=== PATIENT | female | born 1965 | race Caucasian/White ===

== ENCOUNTER 2018-04-13 05:06 | Day surgery (SDC) | payer BC ==
[2018-04-08 13:19] VITALS: BMI 24.0
[2018-04-13] MEDS ORDERED: ISOSULFAN BLUE 10 MG/ML VIAL SQ ONE (11:27)
[2018-04-13] MEDS ORDERED: LIDOCAINE HCL/PF 1% SDV 5ML VIAL ONE ×2 (11:27→11:29)
[2018-04-13] MEDS ORDERED: PROPOFOL 20 ML ONE (12:17)
[2018-04-13] MEDS ORDERED: MIDAZOLAM HCL 2 MG/2 ML SINGLE DOSE VIAL ONE (12:17)
[2018-04-13] MEDS ORDERED: ceFAZolin SODIUM 1 GM VIAL ONE (12:29)
[2018-04-13] MEDS ORDERED: ceFAZolin SODIUM 1 GM VIAL IVPB ONE (12:35)
[2018-04-13] MEDS ORDERED: DEXAMETHASONE SOD PHOSPHATE 4 MG/1 ML VIAL ONE (12:53)
[2018-04-13] MEDS ORDERED: ONDANSETRON 4 MG/2 ML VIAL IVPUSH PRN (13:53)
[2018-04-13] MEDS ORDERED: oxyCODONE HCL 5 MG TABLET PO PRN (13:53)
[2018-04-13] MEDS ORDERED: ACETAMINOPHEN 1000 MG/100 ML VIAL (NON FORMULARY) IVPB ONE (13:54)
[2018-04-13] MEDS ORDERED: KETOROLAC TROMETHAMINE 30 MG/1 ML VIAL IM ONE (13:54)
[2018-04-13] MEDS ORDERED: LACTATED RINGERS SOLUTION 1,000 ML IV SCH (14:00)
--- NOTE | 2018-04-13 15:19 | OP ---
DATE OF OPERATION: 04/13/2018 PREOPERATIVE DIAGNOSIS: Left breast cancer. POSTOPERATIVE DIAGNOSIS: Left breast cancer. PROCEDURE: Left breast ultrasound-guided wire localized lumpectomy and sentinel lymph node biopsy. SURGEON: Christy Valiente MD ANESTHESIA: General. ESTIMATED BLOOD LOSS: Minimal. COMPLICATIONS: None. This was a sterile procedure. INDICATION FOR PROCEDURE: Patient presented with a palpable mass in the retroareolar left 7 o'clock location involving the skin and puckering of the skin that prompted a mammogram and a sonogram. This noted a spiculated density in the inner left breast in addition to the thickening at the nipple-areolar complex. She had a preoperative MRI that noted the 2 areas were relatively close to each other; so, I felt this could be encompassed with 1 lumpectomy. Therefore, we discussed the options of mastectomy and lumpectomy. After the decision was to go ahead with a lumpectomy and a sentinel node biopsy, the procedure was discussed with her, all the questions answered. She understands that part of the nipple would be removed and then, depending on the margins, we will have to decide whether the entire nipple would be removed with the central lumpectomy or not. PROCEDURE IN DETAIL: Patient was brought to [facility], taken to Nuclear Medicine where technetium-labeled sulfur colloid was injected by the radiologist into the left breast as an intradermal injection. She was brought to the operating room, and after induction of general anesthesia, an intraoperative ultrasound performed over the left breast 9 o'clock location, 5 cm from the nipple, and the lesion in question identified, using Betadine to cleanse the skin, a Kopans wire used to localize this under ultrasound guidance by me. Images were recorded. IV antibiotics were given, and the left breast and axilla were prepped and draped in usual sterile fashion. Next, 5 mL of isosulfan blue dye were injected by me into the left subareolar plexus, and breast was massaged for 5 minutes. The left breast and axilla then re-prepped and re-draped, and a 4-cm incision was made in the left axilla, carried down through the clavipectoral fascia to identify 2 sentinel lymph nodes that were both blue and hot. These were sent as sentinel node number 1 blue and hot and sentinel lymph node number 2 blue and hot. There was no other blue dye or radioactivity within the left axilla. However, on palpation, I felt a firm lymph node that was slightly enlarged at approximately 1.2 cm. I took this separately. There was no blue dye or radioactivity within this, and this was sent as a left axillary non-sentinel node. There was no other pathologic-feeling lymph node. Therefore, once hemostasis was assured, the left breast lumpectomy was performed. An ellipse of skin was taken to include the palpable mass in the retroareolar location, as well as the skin overlying the tumor in the 9 o'clock location. Superior, inferior, medial, and lateral flaps were raised, and an en bloc lumpectomy was performed. This was tagged with a long stitch lateral, short stitch superior. The tissue of the nipple felt close, and the tissue on the remainder of the nipple felt soft without involvement grossly. An intraoperative ultrasound was performed of the lumpectomy, and that seemed to be encompassing around the mass in the 9 o'clock location. This was then sent to Pathology for permanent section. Hemostasis was assured with electrocautery. The parenchyma were approximated with interrupted 2-0 Vicryl, skin approximated with interrupted 2-0 Vicryl running and 4-0 Monocryl. The axillary incision was also closed in a routine fashion with interrupted 2-0 Vicryl running and 4-0 Prolene. A sterile dressing with Tegaderm and 4 x 4's applied. She tolerated the procedure well. She was extubated on the operating room table, taken to Recovery in good condition. Johnson [id number]
[2018-04-13 15:26] VITALS: TEMP 97.6
[2018-04-13 16:32] VITALS: BP 118/72; PULSE 80
--- NOTE | 2018-04-20 17:08 | PATH ---
Surgical Pathology Report Patient Name: DAWNA STEPHENSON [facility]. Rec. #: [id number] /Age/Gender: 1965 (Age: 52) / F Account: [id number] Location: [facility] SURGICAL Taken: 04/13/2018 Received: 04/14/2018 Reported: 04/22/2018 Physicians: Christy Valiente M.D. Specimen(s) Received A: LEFT AXILLARY SENTINEL LYMPH NODE #1 B: LEFT AXILLARY SENTINEL LYMPH NODE #2 C: LEFT AXILLARY NON SENTINEL LYMPH NODE D: LEFT BREAST MASS Clinical History Invasive Final Diagnosis AMENDED REPORT A. AXILLARY SENTINEL LYMPH NODE #1, LEFT, EXCISION: ONE BENIGN LYMPH NODE ON H&E AND CYTOKERATIN AE1/3 IMMUNOHISTOCHEMICAL STAIN (0/1). B. AXILLARY SENTINEL LYMPH NODE #2, LEFT, EXCISION: ONE BENIGN LYMPH NODE ON H&E AND CYTOKERATIN AE1/3 IMMUNOHISTOCHEMICAL STAIN (0/1). C. AXILLARY NON-SENTINEL LYMPH NODE, LEFT, EXCISION: ONE BENIGN LYMPH NODE (0/1). D. BREAST, LEFT, LUMPECTOMY: TWO FOCI OF INVASIVE LOBULAR CARCINOMA WITH PLEOMORPHIC FEATURES (TUBULE SCORE: 3/3, NUCLEAR GRADE: 2/3, MITOTIC SCORE: 3/3; TOTAL REBEKA SCORE: 8/9). FOCI OF CARCINOMA MEASURES 2.6 AND 1.4 CM IN GREATEST MICROSCOPIC DIMENSION. INVASIVE CARCINOMA INVOLVES DERMIS. FOCAL LOBULAR CARCINOMA IN SITU (LCIS) WITH PLEOMORPHIC FEATURES, ADMIXED WITH INVASIVE CARCINOMA, PRESENT A MINOR COMPONENT. LYMPHOVASCULAR INVASION IDENTIFIED. INVASIVE CARCINOMA IS <1MM FROM SUPERIOR AND INFERIOR MARGINS. SURGICAL MARGINS ARE UNINVOLVED BY LCIS; LCIS IS 4 MM FROM CLOSEST SUPERIOR MARGIN. CHANGES OF PRIOR BIOPSY PRESENT. PATHOLOGIC STAGE (pTNM): pT2 (m) pN0 (sn). SEE INVASIVE CARCINOMA CASE SUMMARY BELOW. Comments Breast Invasive Carcinoma: Surgical Pathology Case Summary (Based on AJCC TNM 8 th edition) Procedure _X_ Excision (less than total mastectomy) Specimen Laterality _X__ Left Tumor Size _X__ Greatest dimension of largest invasive focus >1 mm (specify exact measurement) (millimeters): _26__ mm Histologic Type _X__ Invasive lobular carcinoma with pleomorphic features Histologic Grade ([place] Histologic Score) Glandular (Acinar)/Tubular Differentiation _X__ Score 3 (<10% of tumor area forming glandular/tubular structures) Nuclear Pleomorphism _X_ Score 2 Mitotic Rate _X_ Score 3 Overall Grade _X_ Grade 3 (scores of 8) Tumor Focality _X_ Multiple foci of invasive carcinoma Number of foci: _2_ Sizes of individual foci: _26 mm and 14 mm Lobular Carcinoma In Situ (LCIS) _X_ Present Ductal Carcinoma In Situ (DCIS) _X_ No DCIS is present Tumor Extension Skin _X__ Invasive carcinoma directly invades into the dermis Margins Invasive Carcinoma Margins _X__ Uninvolved by invasive carcinoma Distance from closest margin (millimeters): <1 mm (superior), <1 mm (inferior) Closest margin: Superior and inferior margins Regional Lymph Nodes Number of Lymph Nodes with Macrometastases (>2 mm): 0 Number of Lymph Nodes with Micrometastases (>0.2 mm to 2 mm and/or >200 cells): 0 Number of Lymph Nodes with Isolated Tumor Cells (=0.2 mm and =200 cells): 0 Number of Lymph Nodes Examined: 3 Number of [place] Nodes Examined : 2 Treatment Effect _X_ No known presurgical therapy Lymphovascular Invasion _X__ Present Pathologic Stage Classification (pTNM, AJCC 8th Edition) Primary Tumor (Invasive Carcinoma) (pT) _X__ pT2: Tumor >20 mm but =50 mm in greatest dimension Regional Lymph Nodes (pN) Modifier _X_ (sn): [place] node(s) evaluated. Category (pN) _X__ pN0: No regional lymph node metastasis identified or ITCs only Amendment Comment: Case was amended in view of additional E-cadherin immunohistochemical stain performed, which is negative in the tumor. Above histomorphology and immunophenotype is supportive of Invasive lobular carcinoma with pleomorphic features. Findings discussed with Dr. Valiente. Case seen interdepartmentally. Electronically Signed Tessa Barriga M.D. Amendments Amended: 04/22/2018 Previous Signout Date: 04/20/2018 Comment: The diagnosis have been changed from " Invasive Ductal Carcinoma, Poorly differentiated and DCIS" to " Invasive Lobular carcinoma with pleomorphic features and LCIS with pleomorphic features" in view of Additional E-caherin stain result. Addendum Reported: 04/22/2018 Addendum Diagnosis Results of Estrogen Receptor (ER), Progesterone Receptor (IL), HER2 (IHC) and Ki-67 studies performed on block "D11" performed at [place], [place] ([id number]) as follows: ER (clone [id number] mouse monoclonal antibody by [employer]): 95% nuclear staining with strong intensity (Positive). IL (clone16 mouse monoclonal antibody by [employer]): 90% nuclear staining with strong intensity (Positive). Her2 IHC (EP3 from [employer], formerly known as [id number], using [employer] Polymer Refine detection kit): 0 (Negative). Ki-67: up to 35% (High proliferative index). Positive and negative controls (internal if applicable) show appropriate results. Formalin fixation and cold ischemic times are within current ASCO/CAP recommendations for ER, IL and Her2 testing. Tessa Barriga M.D. Gross Description A. Received in formalin labeled "left axillary sentinel lymph node #1," is a 2.5 x 1.2 x 0.6 cm feliz lymph node with attached fat. The specimen is bisected and entirely submitted in 2 cassettes. B. Received in formalin labeled "left axillary sentinel lymph node #2," is a 1.1 x 0.5 x 0.4 cm feliz lymph node with attached fat. The specimen is bisected and entirely submitted in one cassette. C. Received in formalin labeled "left axillary non-sentinel lymph node," is a 3.0 x 1.4 x 0.6 cm portion of feliz tissue, possibly consistent with a lymph node. The specimen is bisected and entirely submitted in 2 cassettes. D. Received in formalin, labeled "left breast lumpectomy," is a 7.6 x 5.3 x 4.6 cm. feliz-yellow, irregular, portion of fibroadipose tissue with a needle localization wire present. There is a short suture marking the superior aspect and a long suture marking the lateral aspect, per the surgeon. The anterior surface displays a 7.3 x 1.5 cm feliz, irregular portion of skin with a focal ulcerated lesion at the lateral aspect. The specimen is inked as follows: Superior blue; inferior green; medial yellow; lateral red; deep black. The specimen is serially sectioned from medial to lateral. Sectioning reveals 2 separate masses. Arbitrarily designated mass #1 is 1.4 x 1.2 x 1.2 cm which is adherent to the skin. The mass focally abuts the superior and inferior margins and is 0.6 cm from the lateral margin. Arbitrarily designated, ill-defined mass #2 is 2.6 x 1.8 x 1.8 cm. The mass is 0.6 cm from the superior margin and 0.7 cm from the inferior margin. The remaining margins appear clear of the mass. Auditor Appraiser sections are submitted in 10 cassettes as follows: [id number] and sequentially submitted mass #1 (each with skin, superior and inferior margins); 5-lateral margin; 6-7-full face bisected section of mass #2 (6-with superior margin; 7-with inferior margin); 8-additional mass #2 with superior margin; 9-additional mass #2 with inferior margin; 10-medial margin. Total formalin fixation time: Approximately 24 hours 04/14/201804/14/2018
== END 2018-04-13 16:32 | disposition home or self-care (01) ==
LOC: JASU-SURG 05:06
PROVIDERS: ATTEND Surgery
PROC: 0HBU0ZZ Excision of Left Breast, Open Approach (ICD-10-PCS; principal; 2018-04-13 12:00)
DX: C50.312 Malignant neoplasm of lower-inner quadrant of left female breast (principal); E78.5 Hyperlipidemia, unspecified; E11.9 Type 2 diabetes mellitus without complications; K21.9 Gastro-esophageal reflux disease without esophagitis
CPT/HCPCS: 78195-TC; 88307-TC; 88342-TC; 94760; A9541; J0131